=== PATIENT | female | born 1975 | race Caucasian/White ===

== ENCOUNTER 2019-03-06 06:13 | Observation (INO) | payer OTHER ==
[2019-03-06 06:36] LABS: Specific Gravity > 1.030 (1.005-1.030)
[2019-03-06] MEDS ORDERED: Ringers Lactate 1,000 ML IV ONE ×2 (06:39→11:25)
[2019-03-06] MEDS ORDERED: METHYLENE BLUE 0.5% 10 ML AMP ONE (08:21)
[2019-03-06] MEDS ORDERED: PROPOFOL 200 MG/20 ML VIAL IV ONE (08:26)
[2019-03-06] MEDS ORDERED: ROCURONIUM 50 MG/5 ML VIAL IV ONE (08:27)
[2019-03-06] MEDS ORDERED: GLYCOPYRROLATE 0.2 MG/ML SYR ONE (08:28)
[2019-03-06] MEDS ORDERED: LIDOCAINE 2% MPF 5 ML VIAL ONE (08:30)
[2019-03-06] MEDS ORDERED: MIDAZOLAM HCL 2 MG/2 ML INJ ONE (08:31)
[2019-03-06] MEDS ORDERED: FENTANYL CITR 250 MCG/5 ML ONE (08:31)
[2019-03-06] MEDS ORDERED: SCOPOLAMINE HYDROBROMIDE PATCH TD ONE (08:48)
[2019-03-06] MEDS ORDERED: CIPROFLOXACIN 400mg IV 400 MG/200 ML BAG IV ONE (08:51)
[2019-03-06] MEDS ORDERED: NEOSTIGMINE 1 MG/ML -10 ML VIAL ONE (09:55)
[2019-03-06] MEDS ORDERED: ONDANSETRON 4 MG/2 ML VIAL ONE (09:55)
--- NOTE | 2019-03-06 11:56 | P.BOP ---
Preoperative diagnosis: left breast invasive ductal carcinoma Postoperative diagnosis: same Primary procedure: 1. Left mastectomy with axillary sentinel lymphnode biospy Secondary procedure: 2. Right mastectomy Wire Brusher: Halley Mims ([place]uly) Estimated blood loss: <100cc Specimen: left and right breast, sentinel LN Findings: sentinel LN neg for cancer per Dr Godinez Anesthesia: General Complications: None Drain(s): TYRONE drain (x 4) Transferred to: Recovery Room Condition: Good
[2019-03-06] MEDS: NA CHLORIDE 0.9% 1,000 ML IV SCH ×2 (12:00→23:55)
[2019-03-06] MEDS ORDERED: dexAMETHasone 10 MG/ML VIAL ONE (12:22)
[2019-03-06] MEDS: HYDROMORPHONE HCL 1 MG/ML INJ ONE ×2 (12:25→12:36)
[2019-03-06] MEDS ORDERED: PROMETHAZINE 25 MG/ML VIAL ONE (12:25)
[2019-03-06] MEDS ORDERED: HYDROMORPHONE HCL 1 MG/ML INJ ONE (13:00)
[2019-03-06] MEDS: HYDROMORPHONE HCL 1 MG/ML INJ IV PRN ×4 (13:20→23:55)
[2019-03-06 13:26] VITALS: BMI 33.6
[2019-03-06] MEDS: ONDANSETRON 4 MG/2 ML VIAL IV PRN ×2 (16:59→23:55)
[2019-03-06] MEDS: Ciprofloxacin 200mg IV 200 MG/100 ML IV.SOLN. IV SCH (20:32)
[2019-03-07] MEDS: HYDROMORPHONE HCL 1 MG/ML INJ IV PRN ×4 (04:13→18:49)
[2019-03-07 04:42] LABS: Absolute Lymphocytes (CBC) 0.9 K/uL (0.7-4.9); Basophils % 0.1 % (0-1.3); Hematocrit 28.1 % (36.0-45.0); MPV 8.7 fL (7.6-11.3); RBC Red Blood Cell Count 3.23 M/uL (3.86-4.86)
[2019-03-07 04:57] LABS: Potassium 4.2 mmol/L (3.5-5.1)
[2019-03-07] MEDS: Ciprofloxacin 200mg IV 200 MG/100 ML IV.SOLN. IV SCH (08:30)
[2019-03-07] MEDS: ONDANSETRON 4 MG/2 ML VIAL IV PRN ×2 (08:30→15:05)
[2019-03-07] MEDS: HYDROCODONE/APAP 7.5/325 MG TAB PO PRN ×2 (10:18→20:13)
[2019-03-07] MEDS: DOCUSATE NA 100 MG CAP PO SCH ×2 (10:18→20:13)
[2019-03-07] MEDS ORDERED: FENTANYL 25 MCG/PATCH TD ONE (11:28)
[2019-03-07 12:11] VITALS: O2SAT 97
[2019-03-07] MEDS: NA CHLORIDE 0.9% 1,000 ML IV SCH ×3 (15:14→18:00)
[2019-03-07] MEDS ORDERED: DIPHENHYDRAMINE 25 MG TAB/CAP PO ONE (18:00)
[2019-03-07] MEDS: CIPROFLOXACIN HCL 500 MG TAB PO SCH (20:14)
[2019-03-08] MEDS: ONDANSETRON 4 MG/2 ML VIAL IV PRN ×2 (00:21→10:09)
[2019-03-08] MEDS: HYDROCODONE/APAP 7.5/325 MG TAB PO PRN ×3 (00:21→09:55)
[2019-03-08] MEDS: NA CHLORIDE 0.9% 1,000 ML IV SCH ×2 (03:03→08:09)
[2019-03-08] MEDS ORDERED: LEVOTHYROXINE SOD 0.125 MG TAB PO SCH (06:30)
[2019-03-08] MEDS: CIPROFLOXACIN HCL 500 MG TAB PO SCH (08:12)
[2019-03-08] MEDS: DOCUSATE NA 100 MG CAP PO SCH (08:13)
[2019-03-08] MEDS ORDERED: BUPROPION HCL XL 150 MG TAB PO SCH (09:00)
[2019-03-08 09:57] VITALS: TEMP 97.4
[2019-03-08 12:23] VITALS: BP 127/75
--- NOTE | 2019-03-09 00:30 | OP ---
Date of Procedure: 03/06/2019 Surgeon: Charlie Asencio MD [place] Supervisor: BONG Maradiaga. Preoperative Diagnosis: Left breast invasive ductal carcinoma. Postoperative Diagnosis: Left breast invasive ductal carcinoma. Procedures: 1.Left breast mastectomy with axillary sentinel lymph node biopsy. 2.Right mastectomy. Estimated Blood Loss: Less than 100 cc. Specimen: Left breast and sentinel axillary lymph node and also the right breast. Findings: [place] lymph node negative for cancer by Dr. Godinez, pathologist. Anesthesia: General plus local. Drains: TYRONE #10 x4. Indications: This is the case of a 43-year-old patient, employee from 1 of our institutions, found t o have left breast cancer. We discussed with her the options of breast conservation therapy with rad iation therapy, chemotherapy, but she comes and she understands her options of also possibility of ma stectomy and sentinel lymph node and axillary dissection and not only she wants the left side, she al so requests the right breast to be removed. So, we offered her left mastectomy with axillary sentine l lymph node biopsy, possible axillary dissection, and also right mastectomy. The benefits, alternat karri, and risks fully explained to the patient, which include, but are not limited to infection, blee ding, damage to adjacent structures as complication, nonhealing wound, flap failure, chronic numbness , chronic lymphedema, VT, and even . She also understands this may not relieve any symptoms. S he might need more than one surgical intervention. She understood and signed a consent. She also evans s on the left mandibular region she says she has a small lump that has been there for a long time. S he was advised before to see the ENT doctor. She has not seen yet. We encouraged her to see that as part of the workup since it is near the parotid region. There is a lump in that region that she cla ims, although it has been there for a long time, is not present in the opposite side. Description Of Procedure: For this procedure, she went this morning and had a procedure to localize the sentinel lymph node by the radiologist. When she came to recovery, few hours later we noticed th e signal pickup on the axillary region by the gamma probe. So at that moment, we proceeded to go to the operating room, placed in supine position. Anesthesia was done without complication. A time-out was called. Bilateral breast and axillary area were prepped and draped in sterile fashion. We proc eeded to do the lymph node count. We noticed that skin, the patient had a count of 2038. We made an incision in the axillary region over the axillary hairline. Incision was carried down to the axilla ry fat pad. Using the signal of the gamma probe, we proceeded to localize the sentinel lymph node. Before that, we already injected some blue dye over the areola region and massaged the area for 5 min utes and we went to the area of axillary lymph node region, we noticed the number in-vivo of lymph no de was 971. The ex-vivo was 1751, ex-vivo 10 minute was 2339, background 0 and the node was blue. T he node was sent to the pathologist, who stated that she does not see any cancer in that lymph node. So, the area was irrigated and closed with the help of 3-0 chromic. Since the patient was morbidly obese and had a large area in that region and fat in that region too, we proceeded to leave a TYRONE drai n in that area, exiting and secure it in place with a 3-0 nylon. At that moment, I proceeded to do t he mastectomy. We marked the area to include the nipple and areola complex on the specimen. We trac ed the area in a curvilinear fashion, made an incision in that area, elevated the flaps superior to t he clavicle, medial to the sternum, inferior to the inframammary fold region, and then laterally to t he latissimus dorsi. The breast was removed and the muscle including the fascia in a medial to later al fashion and this was marked for evaluation. We did not see this tumor going through the muscle. Hemostasis was obtained. The area was irrigated. Since the area was large, she had a large breast, we proceeded to put in another TYRONE drain to cover that area exiting through another insertion point se cured in place with 3-0 nylon. We closed the area with a combination of 3-0 chromic and 4-0 PDS. patient tolerated the procedure well. Sponge count, instrument counts were correct. In order to a ssist the other breast, we proceeded to obtain different instruments site and also we scrubbed the ar ea again. We changed gowns. We changed gloves. All new instruments, we worked on the right side. So, what we did was just once we were in that area, then once again we included nipple-areolar comple x in that curvilinear incision with elevated flaps up to the clavicle medial to the sternum, inferior ly to the inframammary fold, and laterally to the latissimus dorsi. The breast and the fascia were r emoved from the muscle from medial to lateral. After that, we irrigated the area profusely and obtai antonieta hemostasis, put 2 TYRONE drains. Since once again, the area was large and securing that to 3-0 nylon to a different insertion point and then closed the subcutaneous tissue with 3-0 chromic and the skin with 4-0 PDS, then put sterile dressings over the area. The patient tolerated the procedure well. The patient was sent to recovery room in stable condition. At the end of the case, flaps were intact . No bleeding to the TYRONE drains and no cyanosis of the flaps. The patient tolerated the procedure we ll. The patient was sent to recovery in stable condition. ENOCH Voice ID: [id number] Report ID: [id number]
== END 2019-03-08 12:58 | disposition home or self-care (01) ==
LOC: OR 06:13 → 4TH 11:57
PROVIDERS: ADMIT Surgery; ATTEND Surgery
PROC: 07B60ZX Excision of Left Axillary Lymphatic, Open Approach, Diagnostic (ICD-10-PCS; 2019-03-06)
PROC: 0HTV0ZZ Resection of Bilateral Breast, Open Approach (ICD-10-PCS; principal; 2019-03-06 09:00)
DX: C50.912 Malignant neoplasm of unspecified site of left female breast (principal)
CPT/HCPCS: 85025; 80048; 36415; 81025; 88307; 88333; 97116; 97161; 19303 ×2; 38525; G0379; J2704; J2710; J2550; J2250; J3010; J1100; J0744 ×3; J1170 ×10; G0378 ×5; J7120 ×2; J7030 ×4; J2405 ×8; 88305

== ENCOUNTER 2019-04-10 08:12 | Day surgery (SDC) | payer OTHER ==
[2019-04-10] MEDS ORDERED: CEFAZOLIN/SWI 1gm 1 GM/10 ML SYR ONE (08:33)
[2019-04-10] MEDS ORDERED: Ringers Lactate 1,000 ML IV ONE ×2 (08:33→11:07)
[2019-04-10] MEDS ORDERED: PROPOFOL 200 MG/20 ML VIAL IV ONE (08:42)
[2019-04-10] MEDS ORDERED: MIDAZOLAM HCL 2 MG/2 ML INJ ONE (08:42)
[2019-04-10] MEDS ORDERED: LIDOCAINE 2% MPF 5 ML VIAL ONE (08:42)
[2019-04-10] MEDS ORDERED: FENTANYL CITR 100 MCG/2 ML ONE (08:42)
[2019-04-10] MEDS ORDERED: NS 0.9% VIAL 20 ML ONE (08:45)
[2019-04-10] MEDS ORDERED: SCOPOLAMINE HYDROBROMIDE PATCH TD ONE (08:46)
[2019-04-10 09:05] LABS: Absolute Lymphocytes (CBC) 1.7 K/uL (0.7-4.9); Lymphocytes % 34.3 % (15.3-44.8); MPV 8.4 fL (7.6-11.3); RBC Red Blood Cell Count 4.19 M/uL (3.86-4.86)
[2019-04-10 09:07] LABS: Specific Gravity >= 1.030 (1.005-1.030)
[2019-04-10 09:17] LABS: Potassium 4.2 mmol/L (3.5-5.1)
[2019-04-10] MEDS: HEPARIN 5000 UNIT/ML 1 ML VIAL ONE ×2 (09:22→09:47)
[2019-04-10] MEDS ORDERED: dexAMETHasone 10 MG/ML VIAL ONE (09:29)
[2019-04-10] MEDS ORDERED: ONDANSETRON 4 MG/2 ML VIAL ONE (09:30)
--- NOTE | 2019-04-10 10:00 | P.BOP ---
Preoperative diagnosis: breast cancer Postoperative diagnosis: same Primary procedure: 1. Placement of portacath Secondary procedure: 2. Interpretation of fluoroscopy Estimated blood loss: <5cc Specimen: none Findings: as above Anesthesia: General Complications: None Transferred to: Recovery Room Condition: Good
[2019-04-10] MEDS: HYDROMORPHONE HCL 1 MG/ML INJ ONE ×7 (10:10→11:02)
[2019-04-10] MEDS: PROMETHAZINE 25 MG/ML VIAL ONE ×2 (10:30→11:05)
[2019-04-10] MEDS: FENTANYL CITR 100 MCG/2 ML ONE ×2 (10:30→10:40)
[2019-04-10 10:39] VITALS: TEMP 97.7
[2019-04-10] MEDS ORDERED: MEPERIDINE HCL 25 MG/0.5 ML ONE (10:44)
--- NOTE | 2019-04-10 11:07 | RAD REPORT ---
EXAM DESCRIPTION: RAD - Fluoroscopy <1 Hour - 04/10/2019 10:59 am CLINICAL HISTORY: Venous catheter insertion. PORT-A-CATH IN OR2 COMPARISON: <Comparisons> FINDINGS: Fluoroscopy time: 0.5 minutes.
--- NOTE | 2019-04-10 11:08 | RAD REPORT ---
EXAM DESCRIPTION: RAD - Chest Single View - 04/10/2019 10:58 am CLINICAL HISTORY: POST PORT A CATH INSERTION Chest pain. COMPARISON: No comparisonsAbdomen 1 View (KUB) dated 01/28/2016 FINDINGS: Right-sided venous catheter is in place. Tip is in the SVC. No postprocedure pneumothorax seen.
[2019-04-10 11:19] VITALS: O2SAT 100
[2019-04-10 12:46] VITALS: BP 148/71
--- NOTE | 2019-04-10 21:24 | OP ---
Date of Procedure: 04/10/2019 Surgeon: Charlie Asencio MD Preoperative Diagnosis: Breast cancer. Postoperative Diagnosis: Breast cancer. Procedures: 1.Placement of a single-lumen Port-A-Cath.. 2.Interpretation of fluoroscopy. Anesthesia: General plus local. Indications: This is a case of a 43-year-old patient with breast cancer, in need of chemotherapy, so the Port-A-Cath was requested by the oncologist. Benefits, alternatives, and risks of Port-A-Cath p lacement fully explained which include, but are not limited to infection, bleeding, damage to adjacen t structures, anesthesia, complication, pneumothorax, hemothorax, pulmonary emboli, cardiac arrhythmi as, DVTs, SC, and even . She also understands this may not relieve any symptoms. She might nee d more than one surgical intervention. She understood, signed a consent. Description Of Procedure: The patient brought to the operating room, placed in supine position. A t tylor-out was called. The right chest was prepped and draped in a sterile fashion. Local anesthesia w as applied. Patient placed in Trendelenburg position. An 18-gauge needle was placed in the right patrick bclavian vein on the first attempt. Guidewire was passed through and got into the superior vena cava using fluoroscopy. Needle was removed. The introducer was placed under direct visualization. Cath eter was placed through the introducer inclusive was peeled off on the fluoroscopy. Then, the cathet er was tunneled in the skin to meet the new incision, which was created in the right upper chest. Po cket was created. The catheter was pull and then cut to proper size. Making sure we hold the cathet er all time and connected the Port-A-Cath using the chicken and fish cleaner's specifications. No leak. The cat heter was flushed and no leak. At that moment, I proceeded to put a Port-A-Cath in the pocket and se cured in place with sutured the Port-A-Cath in place. Then, irrigated the subcutaneous tissue, close d the skin with 3-0 chromic. Excellent backflow and inflow. The patient was brought back to normal position. Steri-Strip was over the area. Patient was sent to recovery in stable condition. CHRISTY/PAULA Voice ID: [id number] Report ID: [id number]
--- NOTE | 2019-04-10 21:27 | DS ---
Date of Discharge: 04/10/2019 Diagnosis: Breast cancer. Procedures: 1.Placement of a Port-A-Cath.. 2.Interpretation of fluoroscopy. Disposition: Home. Activity: As tolerated. No heavy lifting. Followup: Follow up in my office in 1 week. Call for appointment at [phone]. Keep area dry for 48 hours, then may shower. Medications: Include Cipro 500 p.o. b.i.d. and Tylenol #3 q.4 hours p.r.n. pain. CHRISTY/PAULA Voice ID: [id number] Report ID: [id number]
== END 2019-04-10 12:25 | disposition home or self-care (01) ==
LOC: OR 08:12
PROVIDERS: ATTEND Surgery
PROC: 0JH63WZ Insertion of Totally Implantable Vascular Access Device into Chest Subcutaneous Tissue and Fascia, Percutaneous Approach (ICD-10-PCS; principal; 2019-04-10 09:15)
DX: C50.912 Malignant neoplasm of unspecified site of left female breast (principal); E07.9 Disorder of thyroid, unspecified; F32.9 Major depressive disorder, single episode, unspecified; F41.9 Anxiety disorder, unspecified; Z90.13 Acquired absence of bilateral breasts and nipples; Z90.49 Acquired absence of other specified parts of digestive tract; Z87.891 Personal history of nicotine dependence; Z83.3 Family history of diabetes mellitus; Z82.49 Family history of ischemic heart disease and other diseases of the circulatory system
CPT/HCPCS: 85025; 80048; 36415; 81025; 71045; 76000; 36561; J2704; J2550; J1644 ×2; J2250; J3010 ×2; J1100; J2175; J1170 ×2; J0690; J7120 ×2; J2405; C1788